=== PATIENT | male | born 1945 | race Caucasian/White ===

== ENCOUNTER 2019-02-03 19:07 | Inpatient (IN) ==
[2019-02-03] MEDS ORDERED: SODIUM CHLORIDE 0.9% 500 ML IV STA (19:52)
[2019-02-03 20:24] LABS: ABG Base Excess 6.8 MMOL/L (-2.5-2.5); ABG HCO3 30.6 MMOL/L (20-26); ABG Oxygen Saturation 97.7 % (95-100); ABG PCO2 39.8 MM HG (35-48); ABG PH 7.494 (7.35-7.45); ABG TCO2 26.2 MMOL/L (23-27); Allen Test Positive
[2019-02-03 21:46] LABS: Troponin I < 0.015 NG/ML (0.00-0.045)
[2019-02-03 21:48] LABS: Alanine Aminotransferase 56 U/L (16-61); Albumin 3.1 G/DL (3.4-5.0); Alkaline Phosphatase 71 U/L (45-117); Aspartate Amino Transferase 42 U/L (0-37); Blood Urea Nitrogen 25 MG/DL (7-18); Glucose 141 MG/DL (74-106); Osmolality,Calculated 269.5 MOS/KG (273-304); Total Protein 7.5 G/DL (6.4-8.3)
[2019-02-03] MEDS ORDERED: POTASSIUM CHLORIDE 20 MEQ TABLET PO STA (22:01)
[2019-02-03 22:13] LABS: Basophils % 0.2 % (0.0-0.8); Hematocrit 40.9 VOL% (42.0-52.0); Immature Granulocytes % 0.7 %; Lymphocytes # 0.5 10*3/uL (1.4-4.0); Lymphocytes % 3.8 % (21.2-54.2); Mean Corpuscular HGB Conc 34.2 GM/DL (32-36); Mean Corpuscular Volume 92.7 FL (87-102); Mean Platelet Volume 11.5 FL (9.6-12.0); Monocytes % 6.5 % (1.7-12.7); Neutrophils % 88.8 % (38.7-73.9); Platelet Count 214 T/CUMM (130-400); Red Blood Count 4.41 MC/CUMM (3.8-5.5); Red Cell Distribution Width 11.9 % (9.3-17.3); White Blood Count 14.1 T/CUMM (4-12)
[2019-02-03 22:51] LABS: Band Neutrophils 1 % (0-10); Lymphocytes 3 % (20-55); Segmented Neutrophils 86 % (50-85); Total Cells Counted 100
[2019-02-03 22:52] LABS: Hypersegmented Neutrophil Few; Polychromasia Few
[2019-02-03 22:53] LABS: Microcytosis Slight; Platelet Estimate Normal
[2019-02-03 23:20] LABS: Apearance,Urine CLEAR (Clear); Bilirubin,Urine Negative (Negative); Blood, Urine Large mg/dL (Negative); Glucose,Urine (UA) 50 mg/dL (Negative); Hyaline Casts,Urine 1 /LPF (0-3); Ketones,Urine 5 mg/dL (Negative); Mucus,Urine Occasional /LPF (Occasional); Nitrite,Urine Negative (Negative); Protein,Urine >=500 MG/DL; RBC,Urine 126 /HPF (0-4); Urine Color Amber (Yellow); Urine Specific Gravity 1.023 (1.001-1.035); WBC,Urine 4 /HPF (0-6)
[2019-02-03 23:31] LABS: Barbiturates Screen,Urine Negative (Negative); Benzodiazepines Screen,Urine Negative (Negative); Cannabinoid Screen,Urine Negative (Negative); Opiate Screen,Urine Negative (Negative); Phencyclidine Screen,Urine Negative (Negative)
[2019-02-04] MEDS ORDERED: cefTRIAXone 1,000 MG in SODIUM CHLORIDE 0.9% 100 ML IV STA ×2 (00:37→01:35)
[2019-02-04] MEDS ORDERED: VANCOMYCIN INJ 1,000 MG in SODIUM CHLORIDE 0.9% 250 ML IV STA (01:35)
[2019-02-04] MEDS ORDERED: ACYCLOVIR INJ 800 MG in SODIUM CHLORIDE 0.9% 100 ML IV ONE (01:37)
[2019-02-04] MEDS ORDERED: ACETAMINOPHEN 325 MG TABLET PO PRN ×2 (01:48→11:38)
[2019-02-04] MEDS ORDERED: ONDANSETRON 4 MG/2 ML VIAL IV PRN (01:48)
[2019-02-04] MEDS ORDERED: ACYCLOVIR INJ 800 MG in SODIUM CHLORIDE 0.9% 250 ML IV ONE (02:00)
[2019-02-04] MEDS ORDERED: SODIUM CHLORIDE 0.9% 1,000 ML IV SCH (02:00)
[2019-02-04] MEDS ORDERED: cefTRIAXone 1,000 MG VIAL ONE (02:11)
[2019-02-04] MEDS ORDERED: CEFTRIAXONE IV ONE (02:12)
[2019-02-04] MEDS ORDERED: SODIUM CHLORIDE 0.9% IV ONE (02:12)
[2019-02-04] MEDS ORDERED: VANCOMYCIN INJ 1,000 MG in SODIUM CHLORIDE 0.9% 250 ML IV ONE (04:00)
[2019-02-04] MEDS: SODIUM CHLOR 0.9% KCL 40 MEQ 40 MEQ/1,000 ML BAG IV SCH ×3 (05:58→16:20)
[2019-02-04 06:10] LABS: Basophils % 0.2 % (0.0-0.8); Eosinophils % 0.1 % (0.00-10.9); Hematocrit 42.4 VOL% (42.0-52.0); Hemoglobin 14.1 GM/DL (14.0-18.0); Immature Granulocytes % 0.7 %; Immature Granulocytes Absolute 0.11 #; Lymphocytes # 0.8 10*3/uL (1.4-4.0); Lymphocytes % 4.8 % (21.2-54.2); Mean Corpuscular HGB Conc 33.3 GM/DL (32-36); Mean Corpuscular Volume 95.9 FL (87-102); Mean Platelet Volume 11.4 FL (9.6-12.0); Monocytes % 10.6 % (1.7-12.7); Neutrophils % 83.6 % (38.7-73.9); Platelet Count 168 T/CUMM (130-400); Red Blood Count 4.42 MC/CUMM (3.8-5.5); White Blood Count 16.1 T/CUMM (4-12)
[2019-02-04 06:19] LABS: Osmolality,Calculated 272.2 MOS/KG (273-304)
[2019-02-04 07:06] LABS: Lymphocytes 8 % (20-55); Platelet Estimate Adequate; Segmented Neutrophils 82 % (50-85); Total Cells Counted 100
[2019-02-04 07:07] LABS: Hypochromasia 1+; Microcytosis Slight
[2019-02-04 08:59] LABS: INR 1.1
[2019-02-04] MEDS ORDERED: AMPICILLIN INJ 1,000 MG in SODIUM CHLORIDE 0.9% 100 ML IV SCH (10:00)
[2019-02-04] MEDS: ENOXAPARIN 40 MG/0.4 ML SYRINGE SUBCUT SCH (10:24)
[2019-02-04 11:18] LABS: Lymphocytes,CSF 5 %; Monocytes,CSF 6 %; Neutrophils,CSF 89 %
[2019-02-04 11:22] LABS: Appearance,CSF Cloudy
[2019-02-04 11:25] LABS: Glucose,CSF 22 MG/DL (40-70); Red Blood Cell,CSF 371 C/CUMM; White Blood Cell,CSF 2936 C/CUMM
[2019-02-04] MEDS: ACYCLOVIR INJ 800 MG in SODIUM CHLORIDE 0.9% 250 ML IV SCH ×2 (11:37→18:29)
[2019-02-04] MEDS ORDERED: ACETAMINOPHEN 650 MG SUPP RECTAL ONE (11:48)
[2019-02-04] MEDS ORDERED: LORazepam 2 MG/1 ML VIAL IM ONE (12:08)
[2019-02-04] MEDS: cefTRIAXone 2,000 MG in SYRINGE 1 EACH IV SCH (12:21)
[2019-02-04] MEDS: DEXAMETHASONE 10 MG/1 ML VIAL IV SCH ×2 (13:27→19:00)
[2019-02-04] MEDS: AMPICILLIN INJ 2,000 MG in SODIUM CHLORIDE 0.9% 100 ML IV SCH ×2 (16:21→21:43)
[2019-02-04] MEDS: VANCOMYCIN INJ 1,250 MG in SODIUM CHLORIDE 0.9% 250 ML IV SCH (18:29)
[2019-02-04 20:46] LABS: Apearance,Urine CLEAR (Clear); Bilirubin,Urine Negative (Negative); Blood, Urine Large mg/dL (Negative); Glucose,Urine (UA) 50 mg/dL (Negative); Ketones,Urine Negative (Negative); Nitrite,Urine Negative (Negative); Protein,Urine 100 MG/DL; RBC,Urine 45 /HPF (0-4); Squamous Epithelial Cell,Urine Occasional /HPF (0-10); Urine Color Amber (Yellow); Urine Specific Gravity 1.027 (1.001-1.035); WBC,Urine 4 /HPF (0-6)
[2019-02-05] MEDS: DEXAMETHASONE 10 MG/1 ML VIAL IV SCH ×4 (00:51→18:33)
[2019-02-05] MEDS: cefTRIAXone 2,000 MG in SYRINGE 1 EACH IV SCH ×2 (00:51→11:28)
[2019-02-05] MEDS: ACYCLOVIR INJ 800 MG in SODIUM CHLORIDE 0.9% 250 ML IV SCH ×3 (01:40→18:03)
[2019-02-05] MEDS: SODIUM CHLOR 0.9% KCL 40 MEQ 40 MEQ/1,000 ML BAG IV SCH ×4 (01:41→20:42)
[2019-02-05] MEDS: AMPICILLIN INJ 2,000 MG in SODIUM CHLORIDE 0.9% 100 ML IV SCH ×4 (03:14→20:42)
[2019-02-05 05:51] LABS: Basophils % 0.2 % (0.0-0.8); Hematocrit 39.6 VOL% (42.0-52.0); Hemoglobin 13.2 GM/DL (14.0-18.0); Immature Granulocytes % 0.6 %; Lymphocytes # 0.7 10*3/uL (1.4-4.0); Lymphocytes % 4.5 % (21.2-54.2); Mean Corpuscular HGB Conc 33.3 GM/DL (32-36); Mean Corpuscular Volume 94.5 FL (87-102); Mean Platelet Volume 10.9 FL (9.6-12.0); Monocytes % 1.9 % (1.7-12.7); Neutrophils % 92.8 % (38.7-73.9); Platelet Count 206 T/CUMM (130-400); Red Blood Count 4.19 MC/CUMM (3.8-5.5); Red Cell Distribution Width 12.3 % (9.3-17.3)
[2019-02-05 06:14] LABS: Calcium 8.6 MG/DL (8.5-10.1); Hypochromasia Slight; Lymphocytes 5 % (20-55); Microcytosis Slight; Platelet Estimate Adequate; Segmented Neutrophils 94 % (50-85); Total Cells Counted 100
[2019-02-05] MEDS: VANCOMYCIN INJ 1,250 MG in SODIUM CHLORIDE 0.9% 250 ML IV SCH ×2 (06:24→18:03)
[2019-02-05] MEDS: ENOXAPARIN 40 MG/0.4 ML SYRINGE SUBCUT SCH (08:51)
[2019-02-06] MEDS: cefTRIAXone 2,000 MG in SYRINGE 1 EACH IV SCH ×2 (00:44→12:32)
[2019-02-06] MEDS: DEXAMETHASONE 10 MG/1 ML VIAL IV SCH ×4 (00:44→17:32)
[2019-02-06] MEDS: AMPICILLIN INJ 2,000 MG in SODIUM CHLORIDE 0.9% 100 ML IV SCH ×2 (02:55→08:58)
[2019-02-06] MEDS: ACYCLOVIR INJ 800 MG in SODIUM CHLORIDE 0.9% 250 ML IV SCH ×2 (02:55→10:54)
[2019-02-06 04:48] LABS: Basophils % 0.2 % (0.0-0.8); Eosinophils % 0.1 % (0.00-10.9); Hemoglobin 13.2 GM/DL (14.0-18.0); Immature Granulocytes % 1.4 %; Immature Granulocytes Absolute 0.22 #; Lymphocytes # 1.1 10*3/uL (1.4-4.0); Lymphocytes % 6.6 % (21.2-54.2); Mean Corpuscular HGB Conc 33.8 GM/DL (32-36); Mean Corpuscular Volume 93.8 FL (87-102); Mean Platelet Volume 12.2 FL (9.6-12.0); Monocytes % 3.8 % (1.7-12.7); Neutrophils % 87.9 % (38.7-73.9); Platelet Count 201 T/CUMM (130-400); Red Blood Count 4.16 MC/CUMM (3.8-5.5); Red Cell Distribution Width 12.5 % (9.3-17.3)
[2019-02-06 05:15] LABS: Calcium 8.1 MG/DL (8.5-10.1); Osmolality,Calculated 291.1 MOS/KG (273-304)
[2019-02-06 05:23] LABS: Bilirubin,Total 0.6 MG/DL (0.2-1.0); Calcium 8.1 MG/DL (8.5-10.1); Osmolality,Calculated 287.4 MOS/KG (273-304); Total Protein 5.5 G/DL (6.4-8.3)
[2019-02-06] MEDS ORDERED: VANCOMYCIN INJ 1,500 MG in SODIUM CHLORIDE 0.9% 500 ML IV SCH (06:00)
[2019-02-06 07:33] LABS: Hypochromasia Slight; Lymphocytes 5 % (20-55); Microcytosis 1+; Segmented Neutrophils 92 % (50-85); Total Cells Counted 100
[2019-02-06 07:34] LABS: Platelet Estimate Normal
[2019-02-06] MEDS: SODIUM CHLOR 0.9% KCL 40 MEQ 40 MEQ/1,000 ML BAG IV SCH ×2 (08:29→19:28)
[2019-02-06] MEDS: ENOXAPARIN 40 MG/0.4 ML SYRINGE SUBCUT SCH (08:57)
[2019-02-06 14:05] LABS: CMV PCR Source CSF; Epstein-Barr Virus Result Negative (Negative); Epstein-Barr Virus Source CSF; Specimen Source CSF
[2019-02-06 14:09] LABS: VDRL Spinal Fluid Negative (Negative)
[2019-02-07] MEDS: DEXAMETHASONE 10 MG/1 ML VIAL IV SCH ×5 (00:17→23:55)
[2019-02-07] MEDS: cefTRIAXone 2,000 MG in SYRINGE 1 EACH IV SCH ×3 (00:20→23:56)
[2019-02-07 00:56] LABS: Enterovirus PCR Source CSF
[2019-02-07 04:35] LABS: Basophils % 0.2 % (0.0-0.8); Hematocrit 39.4 VOL% (42.0-52.0); Hemoglobin 13.4 GM/DL (14.0-18.0); Immature Granulocytes % 2.2 %; Immature Granulocytes Absolute 0.29 #; Lymphocytes # 0.9 10*3/uL (1.4-4.0); Mean Platelet Volume 11.8 FL (9.6-12.0); Monocytes % 3.9 % (1.7-12.7); Neutrophils % 86.7 % (38.7-73.9); Platelet Count 252 T/CUMM (130-400); Red Blood Count 4.19 MC/CUMM (3.8-5.5); Red Cell Distribution Width 12.7 % (9.3-17.3)
[2019-02-07 05:02] LABS: Calcium 8.2 MG/DL (8.5-10.1); Osmolality,Calculated 286.4 MOS/KG (273-304)
[2019-02-07 05:33] LABS: Lymphocytes 4 % (20-55); Platelet Estimate Normal; Polychromasia Few; Segmented Neutrophils 94 % (50-85); Total Cells Counted 100
[2019-02-07] MEDS: SODIUM CHLOR 0.9% KCL 40 MEQ 40 MEQ/1,000 ML BAG IV SCH ×2 (06:39→18:20)
[2019-02-07] MEDS: ENOXAPARIN 40 MG/0.4 ML SYRINGE SUBCUT SCH (08:54)
[2019-02-07 21:05] LABS: Adenovirus PCR Negative (Negative); Specimen Source CSF
[2019-02-08 05:23] LABS: Basophils % 0.4 % (0.0-0.8); Eosinophils % 0.1 % (0.00-10.9); Hematocrit 41.8 VOL% (42.0-52.0); Immature Granulocytes % 4.2 %; Immature Granulocytes Absolute 0.48 #; Lymphocytes # 0.8 10*3/uL (1.4-4.0); Lymphocytes % 7.1 % (21.2-54.2); Mean Corpuscular HGB Conc 33.5 GM/DL (32-36); Mean Corpuscular Volume 93.1 FL (87-102); Mean Platelet Volume 11.2 FL (9.6-12.0); Monocytes % 3.5 % (1.7-12.7); Neutrophils % 84.7 % (38.7-73.9); Platelet Count 278 T/CUMM (130-400); Red Blood Count 4.49 MC/CUMM (3.8-5.5); Red Cell Distribution Width 12.4 % (9.3-17.3); White Blood Count 11.3 T/CUMM (4-12)
[2019-02-08 05:43] LABS: Calcium 8.2 MG/DL (8.5-10.1)
[2019-02-08] MEDS: SODIUM CHLOR 0.9% KCL 40 MEQ 40 MEQ/1,000 ML BAG IV SCH (05:56)
[2019-02-08] MEDS: DEXAMETHASONE 10 MG/1 ML VIAL IV SCH (05:56)
[2019-02-08] MEDS: ENOXAPARIN 40 MG/0.4 ML SYRINGE SUBCUT SCH (09:23)
[2019-02-08] MEDS: cefTRIAXone 2,000 MG in SYRINGE 1 EACH IV SCH (11:12)
[2019-02-08 13:51] LABS: M. Tuberculosis PCR Result Negative (Negative); M. Tuberculosis PCR Source CSF
[2019-02-09] MEDS: SODIUM CHLOR 0.9% KCL 40 MEQ 40 MEQ/1,000 ML BAG IV SCH ×3 (02:06→22:10)
[2019-02-09] MEDS: cefTRIAXone 2,000 MG in SYRINGE 1 EACH IV SCH ×2 (02:07→11:38)
[2019-02-09 06:05] LABS: Basophils # 0.1 10*3/uL (0.0-0.2); Basophils % 0.6 % (0.0-0.8); Eosinophils # 0.2 10*3/uL (0.0-0.87); Eosinophils % 1.4 % (0.00-10.9); Hematocrit 40.1 VOL% (42.0-52.0); Hemoglobin 13.8 GM/DL (14.0-18.0); Immature Granulocytes % 7.1 %; Immature Granulocytes Absolute 0.99 #; Lymphocytes # 1.9 10*3/uL (1.4-4.0); Lymphocytes % 13.3 % (21.2-54.2); Mean Corpuscular HGB Conc 34.4 GM/DL (32-36); Mean Platelet Volume 11.5 FL (9.6-12.0); Monocytes % 9.5 % (1.7-12.7); Neutrophils % 68.1 % (38.7-73.9); Platelet Count 280 T/CUMM (130-400); Red Blood Count 4.31 MC/CUMM (3.8-5.5); Red Cell Distribution Width 12.2 % (9.3-17.3)
[2019-02-09 06:33] LABS: Calcium 7.9 MG/DL (8.5-10.1)
[2019-02-09 06:38] LABS: Lymphocytes 12 % (20-55); Platelet Estimate Normal; Segmented Neutrophils 83 % (50-85); Total Cells Counted 100
[2019-02-09 06:39] LABS: Polychromasia Few
[2019-02-09] MEDS: ENOXAPARIN 40 MG/0.4 ML SYRINGE SUBCUT SCH (08:48)
[2019-02-09 12:41] LABS: West Nile Virus Ab, IgG, CSF Negative (Negative); West Nile Virus Ab, IgM, CSF Negative (Negative)
[2019-02-10] MEDS: cefTRIAXone 2,000 MG in SYRINGE 1 EACH IV SCH ×2 (00:35→12:51)
[2019-02-10 05:26] LABS: Basophils # 0.1 10*3/uL (0.0-0.2); Basophils % 0.9 % (0.0-0.8); Eosinophils # 0.3 10*3/uL (0.0-0.87); Eosinophils % 2.1 % (0.00-10.9); Hematocrit 40.9 VOL% (42.0-52.0); Hemoglobin 14.2 GM/DL (14.0-18.0); Immature Granulocytes % 8.1 %; Immature Granulocytes Absolute 1.14 #; Lymphocytes # 1.5 10*3/uL (1.4-4.0); Lymphocytes % 10.3 % (21.2-54.2); Mean Corpuscular HGB Conc 34.7 GM/DL (32-36); Mean Corpuscular Volume 91.7 FL (87-102); Mean Platelet Volume 11.2 FL (9.6-12.0); Monocytes % 8.3 % (1.7-12.7); Neutrophils % 70.3 % (38.7-73.9); Platelet Count 269 T/CUMM (130-400); Red Blood Count 4.46 MC/CUMM (3.8-5.5); Red Cell Distribution Width 12.1 % (9.3-17.3)
[2019-02-10 05:43] LABS: Osmolality,Calculated 266.2 MOS/KG (273-304)
[2019-02-10 05:52] LABS: Eosinophils 3 % (0-10); Hypochromasia 1+; Lymphocytes 12 % (20-55); Platelet Estimate Adequate; Segmented Neutrophils 81 % (50-85); Total Cells Counted 100
[2019-02-10] MEDS: SODIUM CHLOR 0.9% KCL 40 MEQ 40 MEQ/1,000 ML BAG IV SCH ×2 (07:03→12:50)
[2019-02-10] MEDS: ENOXAPARIN 40 MG/0.4 ML SYRINGE SUBCUT SCH (09:08)
[2019-02-10 11:13] VITALS: BP 130/85
== END 2019-02-10 13:23 | disposition home or self-care (01) | DRG 871 ==
LOC: EDUNIT# → EDBD → N.ED 19:07 → SUATTDRO 02-04 01:48 → N.EDINP 02-04 01:48 → SUPCPDRO 02-04 01:48 → N.ICU 02-04 02:52 → N.5E 02-07 12:55
PROVIDERS: ADMIT Internal Medicine; ATTEND Internal Medicine

== ENCOUNTER 2019-03-10 18:31 | Observation (INO) ==
[2019-03-10] MEDS ORDERED: SODIUM CHLORIDE 0.9% 500 ML IV STA (19:35)
[2019-03-10 19:45] LABS: Basophils # 0.1 10*3/uL (0.0-0.2); Basophils % 0.7 % (0.0-0.8); Eosinophils # 0.2 10*3/uL (0.0-0.87); Eosinophils % 2.3 % (0.00-10.9); Hematocrit 34.5 VOL% (42.0-52.0); Hemoglobin 11.7 GM/DL (14.0-18.0); Immature Granulocytes % 1.1 %; Immature Granulocytes Absolute 0.08 #; Lymphocytes # 1.6 10*3/uL (1.4-4.0); Lymphocytes % 21.3 % (21.2-54.2); Mean Corpuscular HGB Conc 33.9 GM/DL (32-36); Mean Corpuscular Volume 93.5 FL (87-102); Mean Platelet Volume 9.8 FL (9.6-12.0); Monocytes % 9.2 % (1.7-12.7); Neutrophils % 65.4 % (38.7-73.9); Platelet Count 232 T/CUMM (130-400); Red Blood Count 3.69 MC/CUMM (3.8-5.5); Red Cell Distribution Width 12.6 % (9.3-17.3); White Blood Count 7.5 T/CUMM (4-12)
[2019-03-10 20:00] LABS: Apearance,Urine CLEAR (Clear); Bilirubin,Urine Negative (Negative); Blood, Urine Moderate mg/dL (Negative); Glucose,Urine (UA) Negative (Negative); Ketones,Urine Negative (Negative); Nitrite,Urine Negative (Negative); Protein,Urine Negative; RBC,Urine 10 /HPF (0-4); Squamous Epithelial Cell,Urine Occasional /HPF (0-10); Urine Color Yellow (Yellow); Urine Specific Gravity 1.012 (1.001-1.035); Urine Urobilinogen < 2.0 EU/DL (0.2-1.0); WBC,Urine 1 /HPF (0-6)
[2019-03-10 20:02] LABS: PT Patient Result 10.6 SECS (9.6-12.2)
[2019-03-10 20:08] LABS: Alanine Aminotransferase 34 U/L (16-61); Albumin 3.3 G/DL (3.4-5.0); Alkaline Phosphatase 59 U/L (45-117); Aspartate Amino Transferase 23 U/L (0-37); Blood Urea Nitrogen 19 MG/DL (7-18); Calcium 9.1 MG/DL (8.5-10.1); Glucose 114 MG/DL (74-106); Osmolality,Calculated 272.1 MOS/KG (273-304); Troponin I < 0.015 NG/ML (0.00-0.045)
[2019-03-10 20:19] LABS: Barbiturates Screen,Urine Negative (Negative); Benzodiazepines Screen,Urine Negative (Negative); Cannabinoid Screen,Urine Negative (Negative); Opiate Screen,Urine Negative (Negative); Phencyclidine Screen,Urine Negative (Negative)
[2019-03-11] MEDS ORDERED: MAGNESIUM SULF RIDER 2 GM in PREMIX 1 EACH IV PRN (01:57)
[2019-03-11] MEDS ORDERED: MAGNESIUM SULF RIDER 4 GM in PREMIX 1 EACH IV PRN (01:57)
[2019-03-11] MEDS ORDERED: SODIUM CHLORIDE 0.9% 1,000 ML IV SCH (01:57)
[2019-03-11] MEDS ORDERED: ONDANSETRON 4 MG/2 ML VIAL IV PRN (01:57)
[2019-03-11] MEDS ORDERED: ACETAMINOPHEN 325 MG TABLET PO PRN (01:57)
[2019-03-11] MEDS ORDERED: DOCUSATE SODIUM 100 MG CAPSULE PO PRN (01:57)
[2019-03-11 06:01] LABS: Basophils # 0.1 10*3/uL (0.0-0.2); Basophils % 1.2 % (0.0-0.8); Eosinophils # 0.2 10*3/uL (0.0-0.87); Eosinophils % 2.5 % (0.00-10.9); Hematocrit 34.6 VOL% (42.0-52.0); Hemoglobin 11.8 GM/DL (14.0-18.0); Immature Granulocytes Absolute 0.06 #; Lymphocytes # 2.5 10*3/uL (1.4-4.0); Lymphocytes % 42.1 % (21.2-54.2); Mean Corpuscular HGB Conc 34.1 GM/DL (32-36); Mean Platelet Volume 9.8 FL (9.6-12.0); Monocytes % 9.6 % (1.7-12.7); Neutrophils % 43.6 % (38.7-73.9); Platelet Count 222 T/CUMM (130-400); Red Blood Count 3.68 MC/CUMM (3.8-5.5); Red Cell Distribution Width 12.6 % (9.3-17.3)
[2019-03-11 06:32] LABS: % Iron Saturation 24.1 % (18-50); Calcium 8.8 MG/DL (8.5-10.1); Ferritin 281.2 ng/ml (26-388); Osmolality,Calculated 275.5 MOS/KG (273-304); Risk Ratio 2.38; Thyroid Stimulating Hormone 1.36 uIU/ml (0.358-3.74)
[2019-03-11 07:32] LABS: Sedimentation Rate-Westergren 50 MM/HR (0-20)
[2019-03-11 08:02] LABS: Folate 8.6 NG/ML (5.4-24.0); Vitamin B12 273 PG/ML (211-911)
[2019-03-11] MEDS: ASPIRIN EC 81 MG TABLET PO SCH (09:07)
[2019-03-11] MEDS: ENOXAPARIN 40 MG/0.4 ML SYRINGE SUBCUT SCH (09:07)
[2019-03-11] MEDS: CLOPIDOGREL 75 MG TABLET PO SCH (09:07)
[2019-03-11 10:25] LABS: Hemoglobin A1 (Alkaline) 97.4 % (96.5-98.5); Hemoglobin A2 (Alkaline) 2.6 % (1.5-3.5)
[2019-03-12 05:58] LABS: Basophils # 0.1 10*3/uL (0.0-0.2); Basophils % 0.9 % (0.0-0.8); Eosinophils # 0.1 10*3/uL (0.0-0.87); Hemoglobin 12.4 GM/DL (14.0-18.0); Immature Granulocytes % 0.9 %; Immature Granulocytes Absolute 0.05 #; Lymphocytes # 2.3 10*3/uL (1.4-4.0); Lymphocytes % 39.4 % (21.2-54.2); Mean Corpuscular HGB Conc 33.5 GM/DL (32-36); Mean Corpuscular Volume 94.1 FL (87-102); Mean Platelet Volume 9.7 FL (9.6-12.0); Monocytes % 9.9 % (1.7-12.7); Neutrophils % 46.9 % (38.7-73.9); Platelet Count 240 T/CUMM (130-400); Red Blood Count 3.93 MC/CUMM (3.8-5.5); Red Cell Distribution Width 12.5 % (9.3-17.3); White Blood Count 5.9 T/CUMM (4-12)
[2019-03-12 06:31] LABS: Calcium 9.1 MG/DL (8.5-10.1); Osmolality,Calculated 268.1 MOS/KG (273-304)
[2019-03-12 07:47] VITALS: BP 139/79
[2019-03-12] MEDS: ASPIRIN EC 81 MG TABLET PO SCH (09:32)
[2019-03-12] MEDS: CLOPIDOGREL 75 MG TABLET PO SCH (09:32)
[2019-03-12] MEDS: ENOXAPARIN 40 MG/0.4 ML SYRINGE SUBCUT SCH (09:33)
== END 2019-03-12 11:50 | disposition home or self-care (01) ==
LOC: N.EDINP 18:31 → N.ED 18:31 → N.5E 23:57
PROVIDERS: ADMIT Internal Medicine; ATTEND Internal Medicine